=== PATIENT | female | born 2000 | race Caucasian/White ===

== ENCOUNTER → 2020-04-30 | Outpatient (CLI) | payer SELFPAY | LOC: M LABSMTC 09:34 | PROVIDERS: ATTEND Pediatrics | DX: Z20.828 Contact with and (suspected) exposure to other viral communicable diseases (principal) ==

== ENCOUNTER → 2020-05-29 | Outpatient (CLI) | payer OTHER, SELFPAY | LOC: M LABSMTC 12:25 | PROVIDERS: ATTEND Pediatrics | DX: Z20.822 Contact with and (suspected) exposure to COVID-19 (principal) ==

== ENCOUNTER 2020-06-30 15:12 | Emergency (ER) | payer OTHER ==
[~2020-06-30] VITALS: Ht 160 cm; Wt 53.6 kg
[2020-06-30 17:00] VITALS: BP 129/69
== END 2020-06-30 17:17 | disposition home or self-care (01) ==
LOC: M ED 15:12
DX: Z32.01 Encounter for pregnancy test, result positive (principal)

== ENCOUNTER → 2020-07-28 | Outpatient (REF) | payer OTHER, MEDICAID ==
[2020-07-28 18:52] LABS: HEMATOCRIT 42.6 % (36.0-47.0); HEMOGLOBIN 14.3 g/dl (12.0-15.5); MEAN CORPUSCULAR HEMOGLOBIN 30.6 pg (27.0-33.0); MEAN CORPUSCULAR HGB CONC 33.6 g/dl (32.0-36.5); PLATELET COUNT, AUTOMATED 291 10^3/uL (150-450); RED BLOOD COUNT 4.68 10^6/uL (4.00-5.40); WHITE BLOOD COUNT 10.6 10^3/uL (4.0-10.0)
[2020-07-28 20:01] LABS: HEPATITIS C VIRUS ABY INDEX < 0.0 INDEX (<0.8); HIV 1&2 SCREEN CENTAUR NEGATIVE (NEGATIVE)
[2020-07-28 20:12] LABS: CHLAMYDIA DNA AMPLIFICATION NEGATIVE (NEGATIVE); GC DNA AMPLIFICATION NEGATIVE (NEGATIVE)
== END ==
LOC: M PLALAB 14:53
PROVIDERS: ATTEND Advanced Practice Midwife
DX: Z36.89 Encounter for other specified antenatal screening (principal); Z34.01 Encounter for supervision of normal first pregnancy, first trimester

== ENCOUNTER → 2020-08-26 | Outpatient (REF) | payer OTHER, MEDICAID | LOC: M SFHCWAGY 12:57 | PROVIDERS: ATTEND Advanced Practice Midwife | DX: Z36.89 Encounter for other specified antenatal screening (principal); Z34.01 Encounter for supervision of normal first pregnancy, first trimester ==

== ENCOUNTER → 2020-12-16 | Outpatient (CLI) | payer OTHER, MEDICAID ==
[2020-12-16 13:27] LABS: HEMATOCRIT 31.9 % (36.0-47.0); HEMOGLOBIN 10.9 g/dl (12.0-15.5); MEAN CORPUSCULAR HEMOGLOBIN 31.7 pg (27.0-33.0); MEAN CORPUSCULAR HGB CONC 34.2 g/dl (32.0-36.5); MEAN CORPUSCULAR VOLUME 92.7 fl (80.0-96.0); PLATELET COUNT, AUTOMATED 234 10^3/uL (150-450); RED BLOOD COUNT 3.44 10^6/uL (4.00-5.40); WHITE BLOOD COUNT 11.8 10^3/uL (4.0-10.0)
[2020-12-16 14:00] LABS: THYROID STIMULATING HORMONE 4.09 uIU/ML (0.463-3.98)
[2020-12-16 15:01] LABS: GC DNA AMPLIFICATION NEGATIVE (NEGATIVE)
== END ==
LOC: M PLALAB 09:58
PROVIDERS: ATTEND Advanced Practice Midwife
DX: Z36.89 Encounter for other specified antenatal screening (principal); Z3A.24 24 weeks gestation of pregnancy

== ENCOUNTER → 2021-02-12 | Outpatient (CLI) | payer OTHER, MEDICAID ==
[2021-02-12 15:57] LABS: FREE T4 0.99 NG/DL (0.78-1.33)
[2021-02-12 16:38] LABS: HIV 1&2 SCREEN CENTAUR NEGATIVE (NEGATIVE)
== END ==
LOC: M PLALAB 14:21
PROVIDERS: ATTEND Advanced Practice Midwife
DX: O99.283 Endocrine, nutritional and metabolic diseases complicating pregnancy, third trimester (principal)

== ENCOUNTER → 2021-02-12 | Outpatient (REF) | payer OTHER, MEDICAID | LOC: M SFHCWAGY 16:48 | PROVIDERS: ATTEND Advanced Practice Midwife | DX: O99.283 Endocrine, nutritional and metabolic diseases complicating pregnancy, third trimester (principal) ==

== ENCOUNTER 2021-02-28 14:45 | Inpatient (IN) | payer OTHER, MEDICAID ==
[~2021-02-28] VITALS: Ht 160 cm; Wt 68.8 kg
[2021-02-28] VITALS (14 sets, daily range): BP systolic 114–172; BP diastolic 71–93
[2021-02-28] MEDS ORDERED: PRENTAB9 PO (15:08)
[2021-02-28] MEDS ORDERED: LEVO50TA5 (15:08)
[2021-02-28] MEDS ORDERED: TUMS750C5 PO (15:08)
[2021-02-28] MEDS ORDERED: HOME MED LIST COMPLETE! XX SCH (15:10)
--- OUTSIDE RECORDS SUMMARY | 2021-02-28 16:22 | CCD ---
Continuity of Care Document (CCD) Created on: 12/17/2020 Haris Baez External Reference #: [id number] : 2000 Sex: Female Author Author Haris BERGERON M.D. Organization Unknown Address [address] [place] [address] Phone [phone] Care Team Providers Care Barrel Bander Name Role Phone [facility] Rheumatology AUTM [phone] Odalys Mcmillan PA-C AUTM [phone] [facility] AUTM Problems Active Problems Provider Date Seizure Martha Keyes NP Onset: 12/16/2015 Anxiety Martha Keyes NP Onset: 05/02/2015 Family disruption due to divorce Martha Keyes NP Onset: 12/16/2015 Child in foster care Martha Keyes NP Onset: 05/02/2015 Social History Type Date Description Comments Sex Unknown Tobacco Use Start: Unknown Never Smoked Cigarettes ETOH Use Denies alcohol use Tobacco Use Start: Unknown Patient has never smoked Recreational Drug Use Denies Drug Use Guns in Home No Smoke Alarms Yes Smoke Alarms Carbon Monoxide Detector: Yes Allergies, Adverse Reactions, Alerts Active Allergies Reaction Severity Comments Date Adhesives Hives, Itching Moderate 12/15/2015 NKFA 12/26/2017 NKEA 12/26/2017 Medications Active Medications SIG Qnty Indications Ordering Provide r Date Naproxen Sodium 550mg Tablets take 1 by mouth every 8 hour as needed for cramping 30tabs N92.0 Donny Carbone M.D. 11/20/2019 Immunizations CPT Code Status Date Vaccine Lot # [id number] Given 05/30/2018 Tuberculin PPD 5Tu/0.1mL C54 [id number] [id number] Given 04/03/2018 HPV9 (Gardasil 9) Vaccine R0 73692 51634 Given 03/03/2018 Influenza (>= 6 Months) P.F. Vaccine [id number] 79309 Given 03/03/2018 HPV9 (Gardasil 9) Vaccine R0 06140 69543 Given 12/19/2017 Meningococcal Conjugate Vacc ine (Menveo) [id number] 65642 Given 12/15/2015 Tuberculin PPD 5Tu/0.1mL 799 052 Vital Signs Date Vital Result Comment 04/07/2020 3:15pm BP Systolic 118 mmHg BP Diastolic 70 mmHg Heart Rate 98 /min Body Temperature 96.8 F Respiratory Rate 16 /min O2 % BldC Oximetry 100 % Weight 124.38 lb Weight 56.416 kg Weight Percentile 43rd Height 63 inches 5'3" Height Percentile 31 % BMI (Body Mass Index) 22.0 kg/m2 Body Mass Index Percentile 54 % BSA (Body Surface Area) 1.58 m2 11/22/2019 3:38pm BP Systolic 131 mmHg BP Diastolic 85 mmHg Heart Rate 107 /min Body Temperature 98.6 F O2 % BldC Oximetry 98 % Results Test Acquired Date Facility Test Result H/L Range Note Type & Screen -Incl Blood Type,Juan,AB SC 12/16/2020 [facility] Blood Type A POSITIVE Normal AB Screen ([place])Vis NEGATIVE Normal Complete Blood Count 12/16/2020 [facility] White Blood Count 11.8 10 High 4.0-10.0 Red Blood Count 3.44 10 Low 4.00-5.40 Hemoglobin 10.9 g/dL Low 12.0-15.5 Hematocrit 31.9 % Low 36.0-47.0 Mean Corpuscular Volume 92.7 fl Normal 80.0-96.0 Mean Corpuscular Hemoglobin 31.7 pg Normal 27.0-33.0 Mean Corpuscular HGB Conc 34.2 g/dL Normal 32.0-36.5 Red Cell Distribution Width 11.7 % Normal 11.5-14.5 Platelet Count, Automated 234 10 Normal 150-450 Nucleated Red Blood Cell % 0.0 % Normal 0-0 Laboratory test finding 12/16/2020 [facility] Glucose Challenge Test 1 Hour 117 mg/dL Normal Less Than 1 40 FT4&TSH Panel 12/16/2020 [facility] Thyroid Stimulating Hormone 4.090 uIU/ML High 0.463-3.98 Free T4 1.00 ng/dL Normal 0.78-1.33 GC & Chlamydia By Amp 12/16/2020 [facility] Chlamydia Dna Amplification NEGATIVE Normal Negative 1 GC Dna Amplification NEGATIVE Normal Negative 2 Urine Culture 12/16/2020 [facility] Urine Culture FULL REPORT IN L <SEE NOTE> Normal 3 1 A negative test result does not exclude the possibility of infection because test results may be affected by improper specimen collection, technical error, specimen mix-up, concurrent antibiotic therapy, or the number of organisms in the specimen which may be below the sensitivity of the test. 2 A negative test result does not exclude the possibility of infection because test results may be affected by improper specimen collection, technical error, specimen mix-up, concurrent antibiotic therapy, or the number of organisms in the specimen which may be below the sensitivity of the test. 3 FULL REPORT IN LAB NOTES (eC W and Medsk[facility]). ORGANISM 1: LACTOBACILLUS SPECIES COLONY COUNT 50,000 Most Lactobacillus species recovered from clinical specimens are rarely pathogenic. Penicillin or ampicillin with or without gentamicin is recommended for treatment. Clindamycin and erythromycin are alternative treatments. Vancomycin resistance has been reported. ORGANISM 1: LACTOBACILLUS SPECIES Procedures Description No Information Available Medical Devices Description No Information Available Encounters Description No Information Available Assessments Description No Information Available Plan of Treatment 04/07/2020 - Odalys Mcmillan PA-C* F95.8 Tic disorder* Comments:* No focal deficits or tics observed today. Recommended neurology referral for further evaluation. * Referral:* [facility] Functional Status Description No Information Available Mental Status Description No Information Available Referrals Description No Information Available
--- OUTSIDE RECORDS SUMMARY | 2021-02-28 16:22 | CCD ---
Author Author [facility] Organization [facility] Address Unknown Phone Unavailable Care Team Providers Care Surgical Specialist Name Role Phone Missy Virgen Unavailable PROBLEMS Type Condition ICD9-CM Code [id number] Code Onset Dates Condition S tatus W/U Status Risk SNOMED Code Notes Problem Supervision of other normal Z34.80 Ac tive confirm [id number] ALLERGIES No Known Allergies ENCOUNTERS from 2000 to 2020-12-17 Encounter Location Date Provider Diagnosis [facility] [address] [place] [address] [place] [address] Nov, Missy Virgen Fatigue R53.83 ; Other specified related conditions, third trimester O26.893 and 28 weeks gestation of Z3A.28 IMMUNIZATIONS No Information SOCIAL HISTORY Tobacco Use: Social History Observation Description Date Details (start date - stop date) Never Smoker Sex Assigned At : Social History Observation Description Sex Assigned At Unknown Tobacco Use: Question Answer Notes Are you a: never smoker REASON FOR REFERRAL No Information VITAL SIGNS Weight 137.6 lbs Nov, Weight-kg 62.41 kg Nov, Height 63 in Nov, BMI 24.375 kg/m2 Nov, Blood pressure systolic 120 mm Hg Nov, Blood pressure diastolic 78 mm Hg Nov, MEDICATIONS Medication SIG (Take, Route, Frequency, Duration) Notes Start Da te End Date Status 27-1 MG 1 tablet Orally Once a day Active Macrobid 100 MG 1 capsule Orally twice a day for 7 day(s) Sep, Not-Taking Ondansetron 4 MG 1 tablet on the tongue and a llow to dissolve Orally Once a day for 30 day(s) Jun, Active Macrobid 100 MG capsule Orally Twice a day for 7 days 2020 Not-Taking PROCEDURES No Information RESULTS Component Value Reference Range URINE CULTURE Reviewed date:12/17/2020 17:24:19 Interpretation: Performing Lab:[facility], [facility] [address] [facility] [id number] , ,[place] [address] REASON FOR VISIT 4 WK PN Goals Section No Information Health Concerns No Information MEDICAL EQUIPMENT No Information MENTAL STATUS No Information FUNCTIONAL STATUS No Information ASSESSMENTS Encounter Date Diagnosis Assessment Notes Treatment Notes Treatm ent Clinical Notes Nov, Fatigue (ICD-10 - R53.83) Nov, Other specified re lated conditions, third trimester (ICD- 10 - O26.893) Nov, 28 weeks gestation of (ICD-10 - Z3A.28 ) PLAN OF TREATMENT Treatment Notes Test Name Order Date FREE T4 & TSH PANEL 2020-12-16 Next Appt Details 2 Weeks Reason:- Routine follow up Provider Name:Charmaine Krishna, 2 11:30:00 AM, [address] [place] [address] , [place], [address], Provider Name:Charmaine Krishna, 2020-12-31 5 09:00:00 AM, [address] [place] [address] , [place], [address], Provider Name:Santi Smalls, 2021-01-28 01:00:00 PM, [address] [place] [address] , [place], [address], Follow Up:2 Weeks- Routine follow up Insurance Providers Payer Name Payer Address Payer Phone Insured Name Patient Relati onship to Insured Coverage Start Date Coverage End Date MEDICAID [employer] [address] [facility] [id number] [address] [facility] [address] [place] [id number] Vivek Baez
--- OUTSIDE RECORDS SUMMARY | 2021-02-28 16:22 | CCD ---
Author Author [facility] Organization [facility] Address Unknown Phone Unavailable Care Team Providers Care Labeling Strategist Name Role Phone Santi Smalls Unavailable PROBLEMS Type Condition ICD9-CM Code [id number] Code Onset Dates Condition S tatus W/U Status Risk SNOMED Code Notes Problem Supervision of other normal Z34.80 Ac tive confirm [id number] Problem Anemia complicating , third trimester O99 .013 Active confirmed [id number] ALLERGIES No Known Allergies ENCOUNTERS from 2000 to 2021-02-03 Encounter Location Date Provider Diagnosis [facility] [address] [place] [address] [place] [address] Dec, Santi Smalls Encounter for superv ision of normal first in third trimester Z34.03 and 34 weeks gestation of Z3A.34 IMMUNIZATIONS Vaccine Route Administration Date Status TDAP 0.5mL Boostrix IM Intramuscular Jan 14, 2021 Administere d SOCIAL HISTORY Tobacco Use: Social History Observation Description Date Details (start date - stop date) Never Smoker Sex Assigned At : Social History Observation Description Sex Assigned At Unknown Alcohol Screening: Question Answer Notes Did you have a drink containing alcohol in the past year? No Points 0 Interpretation Negative Tobacco Use: Question Answer Notes Are you a: never smoker REASON FOR REFERRAL No Information VITAL SIGNS Weight 147.8 lbs Dec, Height 63 in Dec, BMI 26.182 kg/m2 Dec, Blood pressure systolic 122 mm Hg Dec, Blood pressure diastolic 58 mm Hg Dec, MEDICATIONS Medication SIG (Take, Route, Frequency, Duration) Notes Start Da te End Date Status Ferrous Sulfate 325 (65 Fe) MG 1 tablet Orally Once a day for 30 day(s) Nov, Active Levothyroxine Sodium 50 MCG 1 tablet in the morning on an empty stomach Orally Once a day for 30 day(s) Nov, Active 27-1 MG 1 tablet Orally Once a day Active Ondansetron 4 MG 1 tablet on the tongue and a llow to dissolve Orally Once a day for 30 day(s) Jun, Active PROCEDURES No Information RESULTS No Results REASON FOR VISIT 2 WK Goals Section No Information Health Concerns No Information MEDICAL EQUIPMENT No Information MENTAL STATUS No Information FUNCTIONAL STATUS No Information ASSESSMENTS Encounter Date Diagnosis Assessment Notes Treatment Notes Treatm ent Clinical Notes Dec, Encounter for supervision of normal first in third trimester (ICD-10 - Z34.03) Dec, 34 weeks gestation of (ICD-10 - Z3A.34 ) PLAN OF TREATMENT Next Appt Details Provider Name:Tammy Contreras, 2021-02-12 01:40:00 PM, [address] [place], [place] [address], [place], [address], Provider Name:Tammy Contreras, 2021-02-19 11:40:00 AM, [address] [place] [address], [place], [address], Provider Name:Missy Virgen, 2021-02-26 10:00:00 AM, [address] [place] [address], [place], [address], Provider Name:Tammy Contreras, 2021-03-05 01:40:00 PM, [address] [place] [address], [place], [address], Insurance Providers Payer Name Payer Address Payer Phone Insured Name Patient Relati onship to Insured Coverage Start Date Coverage End Date MEDICAID [employer] [address] [facility] [id number] [address] [facility] [address] [place] [id number] Vivek Baez
--- OUTSIDE RECORDS SUMMARY | 2021-02-28 16:22 | CCD | Continuity of Care Document ---
Author Author Haris BERGERON M.D. Organization Unknown Address [address] [place] [address] Phone [phone] Care Team Providers Care Editing Clerk Name Role Phone [facility] Rheumatology AUTM [phone] Odalys Mcmillan PA-C AUTM [phone] [facility] AUTM Problems Active Problems [...] CPT Code Status Date Vaccine Lot # [id number] Given 05/30/2018 Tuberculin PPD 5Tu/0.1mL C54 [id number] 93623 Given 04/03/2018 HPV9 (Gardasil 9) Vaccine R0 92200 33212 Given 03/03/2018 Influenza (>= 6 Months) P.F. Vaccine [id number] 95799 Given 03/03/2018 HPV9 (Gardasil 9) Vaccine R0 21499 05392 Given 12/19/2017 Meningococcal Conjugate Vacc ine (Menveo) [id number] 77621 Given 12/15/2015 Tuberculin PPD 5Tu/0.1mL 799 052 [...] & Screen -Incl Blood Type,Juan,AB SC 12/16/2020 [facility] Blood Type A POSITIVE Normal AB Screen ([place])Vis NEGATIVE Normal Complete Blood Count 12/16/2020 [facility] White Blood Count 11.8 10 High [...] % Normal 0-0 Laboratory test finding 12/16/2020 [facility] Glucose Challenge Test 1 Hour 117 mg/dL Normal Less Than 1 40 FT4&TSH Panel 12/16/2020 [facility] Thyroid Stimulating Hormone 4.090 uIU/ML High 0.463-3.98 Free T4 1.00 ng/dL Normal 0.78-1.33 GC & Chlamydia By Amp 12/16/2020 [facility] Chlamydia Dna Amplification NEGATIVE Normal Negative 1 GC Dna Amplification NEGATIVE Normal Negative 2 Urine Culture 12/16/2020 [facility] Urine Culture FULL REPORT IN L [...]
--- OUTSIDE RECORDS SUMMARY | 2021-02-28 16:22 | CCD ---
Author Author [facility] Organization [facility] Address Unknown Phone Unavailable Care Team Providers Care Tax Advisor Name Role Phone Missy Virgen Unavailable PROBLEMS Type Condition ICD9-CM Code [id number] Code Onset Dates Condition S tatus W/U Status Risk SNOMED Code Notes Problem Supervision of other normal Z34.80 Ac tive confirm [id number] Problem Anemia complicating , third trimester O99 .013 Active confirmed 94087735 ALLERGIES No Known Allergies ENCOUNTERS from 2000 to 2020-12-18 Encounter Location Date Provider Diagnosis [facility] [address] [place] [address] [place] [address] Nov, Missy Virgen Hypothyroid in pr egnancy, antepartum O99.280 IMMUNIZATIONS No Information SOCIAL HISTORY Tobacco Use: Social History Observation Description Date Details (start date - stop date) Never Smoker Sex Assigned At : Social History Observation Description Sex Assigned At Unknown Tobacco Use: Question Answer Notes Are you a: never smoker REASON FOR REFERRAL No Information VITAL SIGNS No information MEDICATIONS Medication SIG (Take, Route, Frequency, Duration) Notes Start Da te End Date Status Ferrous Sulfate 325 (65 Fe) MG 1 tablet Orally Once a day for 30 day(s) Nov, Active Macrobid 100 MG capsule Orally Twice a day for 7 days 02 A 2020 Not-Taking Macrobid 100 MG 1 capsule Orally twice a day for 7 day(s) Sep, Not-Taking Ondansetron 4 MG 1 tablet on the tongue and a llow to dissolve Orally Once a day for 30 day(s) Jun, Active Levothyroxine Sodium 50 MCG 1 tablet in the morning on an empty stomach Orally Once a day for 30 day(s) Nov, Active 27-1 MG 1 tablet Orally Once a day Active PROCEDURES No Information RESULTS No Results REASON FOR VISIT No Information Goals Section No Information Health Concerns No Information MEDICAL EQUIPMENT No Information MENTAL STATUS No Information FUNCTIONAL STATUS No Information ASSESSMENTS Encounter Date Diagnosis Assessment Notes Treatment Notes Treatm ent Clinical Notes Nov, Hypothyroid in , antepartum (ICD-10 - O 99.280) PLAN OF TREATMENT Medication Medication Name Sig Start Date Stop Date Ferrous Sulfate 325 (65 Fe) MG 1 tablet Orally Once a day fo r 30 day(s) Nov, Levothyroxine Sodium 50 MCG 1 tablet in the morning on an empty stomach Orally Once a day for 30 day(s) Nov, Next Appt Details Provider Name:Charmaine Krishna, 2 11:30:00 AM, [address] [place] [address], [place], [address], Provider Name:Charmaine Krishna, 2020-12-31 5 09:00:00 AM, [address] [place] [address], [place], [address], Provider Name:Santi Smalls, 2021-01-28 01:00:00 PM, [address] [place] [address], [place], [address], Insurance Providers Payer Name Payer Address Payer Phone Insured Name Patient Relati onship to Insured Coverage Start Date Coverage End Date MEDICAID [employer] [address] [facility] [address] [address] [facility] [address] [place] [id number] Vivek Baez
--- OUTSIDE RECORDS SUMMARY | 2021-02-28 16:22 | CCD ---
Author Author [facility] Organization [facility] Address Unknown Phone Unavailable Care Team Providers Care Nursing Project Coordinator Name Role Phone Charmaine Krishna Unavailable PROBLEMS Type Condition ICD9-CM Code [id number] Code Onset Dates Condition S tatus W/U Status Risk SNOMED Code Notes Problem Hypothyroid E03.9 Active confirmed 82757234 Problem Anemia complicating , third trimester O99 .013 Active confirmed 97469697 Problem Supervision of other normal Z34.80 Ac tive confirm 876381808 Problem Hypothyroid in , antepartum O99.280 Active confirmed ALLERGIES No Known Allergies ENCOUNTERS from 2000 to 2021-02-04 Encounter Location Date Provider Diagnosis [facility] Breast Care [address] [place] [address] [place] [address] Dec, Charmaine JorgeAlonsoeitan 32 weeks gestation o f Z3A.32 ; Other specified related conditions, third trimester O26.893 and Encounter for immunization Z23 IMMUNIZATIONS Vaccine Route Administration Date Status TDAP [...] FOR REFERRAL No Information VITAL SIGNS Weight 143 lbs Dec, Weight-kg 64.86 kg Dec, Height 63 in Dec, BMI 25.331 kg/m2 Dec, Blood pressure systolic 120 mm Hg Dec, Blood pressure diastolic 68 mm Hg Dec, MEDICATIONS Medication SIG (Take, [...] day for 30 day(s) Jun, Active PROCEDURES from 2000 to 2021-02-04 Procedure Date Ordered Result Body Site Imm: Boostrix 0.5mL IM TDAP 2021-01-14 N/A RESULTS No Results REASON FOR VISIT 2 WK Goals Section No Information Health Concerns No Information MEDICAL EQUIPMENT No Information MENTAL STATUS No Information FUNCTIONAL STATUS No Information ASSESSMENTS Encounter Date Diagnosis Assessment Notes Treatment Notes Treatm ent Clinical Notes Dec, 32 weeks gestation of (ICD-10 - Z3A.32 ) Dec, Other specified re lated conditions, third trimester (ICD- 10 - O26.893) Dec, Encounter for immunization (ICD-10 - Z23) PLAN OF TREATMENT Next Appt Details 2 Weeks Reason:routine Provider Name:Tammy Contreras, 2021-02-12 01:40:00 PM, [address] [place] [address] , [place], [address], Provider Name:Tammy Contreras, 2021-02-19 11:40:00 AM, [address] [place] [address] , [place], [address], Provider Name:Missy Virgen, 2021-02-26 10:00:00 AM, [address] [place] [address], [place], [address], Provider Name:Tammy Contreras, 2021-03-05 01:40:00 PM, [address] [place] [address] , [place], [address], Follow Up:2 Weeksroutine Insurance Providers Payer Name Payer Address Payer Phone Insured Name Patient Relati onship to Insured Coverage Start Date Coverage End Date [facility] HEALTH [employer]URANCE [address] [place] [address] Vivek Baez MEDICAID [employer] [address] [facility] [id number] [address]AE[address] self
--- OUTSIDE RECORDS SUMMARY | 2021-02-28 16:22 | CCD ---
Author Author [facility] Organization [facility] Address Unknown Phone Unavailable Care Team Providers Care Ict Teacher Name Role Phone Missy Virgen Unavailable PROBLEMS Type Condition ICD9-CM Code [id number] Code Onset Dates Condition S tatus W/U Status Risk SNOMED Code Notes Problem Supervision of other normal Z34.80 Ac tive confirm [id number] Problem Anemia complicating , third trimester O99 .013 Active confirmed 89837666 ALLERGIES No Known Allergies ENCOUNTERS from 2000 to 2020-12-18 Encounter Location Date Provider Diagnosis [facility] [address] [place] [address] [place] [address] Nov, Missy Virgen Anemia complicati ng , third trimester O99.013 IMMUNIZATIONS No Information SOCIAL HISTORY Tobacco Use: [...] Orally Twice a day for 7 days A 2020 Not-Taking Macrobid 100 MG 1 [...] Treatment Notes Treatm ent Clinical Notes Nov, Anemia complicating , third tri mester (ICD-10 - O99.013) PLAN OF TREATMENT Medication Medication Name Sig Start Date Stop Date Ferrous Sulfate 325 (65 Fe) MG 1 tablet Orally Once a day fo r 30 day(s) Nov, Levothyroxine Sodium 50 MCG 1 tablet in the morning on an empty stomach Orally Once a day for 30 day(s) Nov, Next Appt Details Provider Name:Charmaine Krishna, 2 11:30:00 AM, [address] [place] [address], [place], [address], Provider Name:Charmaine Krishna, 2020-12-31 5 09:00:00 AM, [address] [place] [address], [place], [address], Provider Name:Santi Smalls, 2021-01-28 01:00:00 PM, [address] [place] [address], [place], [address], Insurance Providers Payer Name Payer Address Payer Phone Insured Name Patient Relati onship to Insured Coverage Start Date Coverage End Date MEDICAID [employer] [address] [facility] [address] [address] [facility] [address] [facility] [id number] Vivek Baez
--- OUTSIDE RECORDS SUMMARY | 2021-02-28 16:22 | CCD | Continuity of Care Document ---
Author Author Haris BERGERON M.D. Organization Unknown Address [address] [place] [address] Phone [phone] Care Team Providers Care Travelift Operator Name Role Phone [facility] Rheumatology AUTM [phone] Odalys Mcmillan PA-C AUTM [phone] [facility] AUTM Problems Active [...] CPT Code Status Date Vaccine Lot # [id number] Given 05/30/2018 Tuberculin PPD 5Tu/0.1mL C54 [id number] 96818 Given 04/03/2018 HPV9 (Gardasil 9) Vaccine R0 42280 27047 Given 03/03/2018 Influenza (>= 6 Months) P.F. Vaccine [id number] 88537 Given 03/03/2018 HPV9 (Gardasil 9) Vaccine R0 88972 13948 Given 12/19/2017 Meningococcal Conjugate Vacc ine (Menveo) [id number] 22448 Given 12/15/2015 Tuberculin PPD 5Tu/0.1mL 799 052 [...] & Screen -Incl Blood Type,Juan,AB SC 12/16/2020 [facility] Blood Type A POSITIVE Normal AB Screen ([place])Vis NEGATIVE Normal Complete Blood Count 12/16/2020 [facility] White Blood Count 11.8 10 High 4.0-10.0 [...] % Normal 0-0 Laboratory test finding 12/16/2020 [facility] Glucose Challenge Test 1 Hour 117 mg/dL Normal Less Than 1 40 FT4&TSH Panel 12/16/2020 [facility] Thyroid Stimulating Hormone 4.090 uIU/ML High 0.463-3.98 Free T4 1.00 ng/dL Normal 0.78-1.33 GC & Chlamydia By Amp 12/16/2020 [facility] Chlamydia Dna Amplification NEGATIVE Normal Negative 1 GC Dna Amplification NEGATIVE Normal Negative 2 Urine Culture 12/16/2020 [facility] Urine Culture FULL REPORT IN L <SEE [...]
--- OUTSIDE RECORDS SUMMARY | 2021-02-28 16:22 | CCD ---
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 Name Role Phone Charmaine Krishna Unavailable PROBLEMS Type Condition ICD9-CM Code [id number] Code Onset Dates Condition S tatus W/U Status Risk SNOMED Code Notes Problem Hypothyroid E03.9 Active confirmed 14019121 Problem Anemia complicating , third trimester O99 .013 Active confirmed 71013718 Problem Supervision of other normal Z34.80 Ac tive confirm 340554093 Problem Hypothyroid in , antepartum O99.280 Active confirmed ALLERGIES No Known Allergies ENCOUNTERS from 2000 to 2021-02-04 Encounter Location Date Provider Diagnosis [facility] [address] [place] [address] [place] [address] Dec, Charmaine Krishna Other specified preg taylor related conditions, third trimester O26.893 ; Endocrine, nutritional and metabolic diseases complicating , third trimester O99.283 ; Hypothyroid E03.9 ; 30 weeks gestation of Z3A.30 and Encounter for supervision of normal first , third trimester Z34.03 IMMUNIZATIONS Vaccine Route Administration Date Status TDAP [...] FOR REFERRAL No Information VITAL SIGNS Weight 141 lbs 02 Sep, 2021 Height 63 in Dec, BMI 24.977 kg/m2 Dec, Blood pressure systolic 128 mm Hg Dec, Blood pressure diastolic 62 mm Hg Dec, MEDICATIONS Medication SIG (Take, [...] No Results REASON FOR VISIT 2 WK PN Goals Section No Information Health Concerns No Information MEDICAL EQUIPMENT No Information MENTAL STATUS No Information FUNCTIONAL STATUS No Information ASSESSMENTS Encounter Date Diagnosis Assessment Notes Treatment Notes Treatm ent Clinical Notes Dec, Other specified re lated conditions, third trimester (ICD- 10 - O26.893) Dec, Endocrine, nutritional and m etabolic diseases complicating , third trimester (ICD-10 - O99.283) Dec, Hypothyroid (ICD-10 - E03.9) Dec, 30 weeks gestation of (ICD-10 - Z3A.30 ) Dec, Encounter for supervision of normal first , third trimester (ICD-10 - Z34.03) PLAN OF TREATMENT Next Appt Details Provider Name:Tammy Contreras, 2021-02-12 01:40:00 PM, [address] [place] [address] , [place], [address], Provider Name:Tammy Contreras, 2021-02-19 11:40:00 AM, [address] [place] [id number], [place], [address], Provider Name:Missy Virgen, 2021-02-26 10:00:00 AM, [address] [place], [place] [id number], [place], [address], Provider Name:Tammy Contreras, 2021-03-05 01:40:00 PM, [address] [facility] [place], , [place], [address], Insurance Providers Payer Name Payer Address Payer Phone Insured Name Patient Relati onship to Insured Coverage Start Date Coverage End Date MEDICAID [employer] [address] [facility] [id number] TRACY BAEZ [facility] [address] [facility] [id number] Vivek Baez
--- OUTSIDE RECORDS SUMMARY | 2021-02-28 16:22 | CCD ---
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 Role Phone Brisa Taylor Unavailable PROBLEMS Type Condition ICD9-CM Code [id number] Code Onset Dates Condition S tatus W/U Status Risk SNOMED Code Notes Problem Hypothyroid E03.9 Active confirmed 30017455 Problem Anemia complicating , third trimester O99 .013 Active confirmed 74882936 Problem Supervision of other normal Z34.80 Ac tive confirm 655629060 Problem Hypothyroid in , antepartum O99.280 Active confirmed ALLERGIES No Known Allergies ENCOUNTERS from 2000 to 2021-02-05 Encounter Location Date Provider Diagnosis [facility] [address] [place] [address] [place] [address] Jan, Brisa Taylor IMMUNIZATIONS Vaccine Route Administration Date Status TDAP [...] Information RESULTS No Results REASON FOR VISIT concerns Goals Section No Information Health Concerns No Information MEDICAL EQUIPMENT No Information MENTAL STATUS No Information FUNCTIONAL STATUS No Information ASSESSMENTS No Information PLAN OF TREATMENT Next Appt Details Provider Name:Tammy Contreras, 2021-02-12 01:40:00 PM, [address] [place] [address], [place], [address], Provider Name:Tammy Contreras, 2021-02-19 11:40:00 AM, [address] [place], [place] [address], [place], [address], Provider Name:Missy Virgen, 2021-02-26 10:00:00 AM, [address] [place], [place] [address], [place], [place], [address] [place] [address], Provider Name:Tammy Contreras, 2021-03-05 01:40:00 PM, [address] [place] [address], [place], [address], Insurance Providers Payer Name Payer Address Payer Phone Insured Name Patient Relati onship to Insured Coverage Start Date Coverage End Date [facility] [employer] [id number] [facility] [id number] Vivek Baez MEDICAID [employer] [address] [facility] [id number] [phone] TRACY BAEZ self
--- OUTSIDE RECORDS SUMMARY | 2021-02-28 16:23 | CCD ---
Author Author [facility] Organization [facility] Address Unknown Phone Unavailable Care Team Providers Care Developmental Writing Instructor Name Role Phone Mcmillan, M Odalys PA-C Unavailable Unavailable Mcmillan, M Odalys PA-C Unavailable Unavailable Mcmillan, M Odalys PA-C Unavailable Unavailable Mcmillan, M Odalys PA-C Unavailable Unavailable Mcmillan, M Odalys PA-C Unavailable Unavailable Mcmillan, M Odalys PA-C Unavailable Unavailable Mcmillan, M Odalys PA-C Unavailable Unavailable Mcmillan, M Odalys PA-C Unavailable Unavailable Mcmillan, M Odalys PA-C Unavailable Unavailable Mcmillan, M Odalys PA-C Unavailable Unavailable Mcmillan, M Odalys PA-C Unavailable Unavailable Mcmillan, M Odalys PA-C Unavailable Unavailable Mcmillan, M Odalys PA-C Unavailable Unavailable Mcmillan, M Odalys PA-C Unavailable Unavailable Mcmillan, M Odalys PA-C Unavailable Unavailable Mcmillan, M Odalys PA-C Unavailable Unavailable Mcmillan, M Odalys PA-C Unavailable Unavailable Mcmillan, M Odalys PA-C Unavailable Unavailable Mcmillan, M Odalys PA-C Unavailable Unavailable Mcmillan, M Odalys PA-C Unavailable Unavailable Mcmillan, M Odalys PA-C Unavailable Unavailable Mcmillan, M Odalys PA-C Unavailable Unavailable Mcmillan, M Odalys PA-C Unavailable Unavailable Mcmillan, M Odalys PA-C Unavailable Unavailable Mcmillan, M Odalys PA-C Unavailable Unavailable Mcmillan, M Odalys PA-C Unavailable Unavailable Mcmillan, M Odalys PA-C Unavailable Unavailable Mcmillan, M Odalys PA-C Unavailable Unavailable Mcmillan, M Odalys PA-C Unavailable Unavailable Mcmillan, M Odalys PA-C Unavailable Unavailable Mcmillan, M Odalys PA-C Unavailable Unavailable Mcmillan, M Odalys PA-C Unavailable Unavailable Mcmillan, M Odalys PA-C Unavailable Unavailable Mcmillan, M Odalys PA-C Unavailable Unavailable Mcmillan, M Odalys PA-C Unavailable Unavailable Mcmillan, M Odalys PA-C Unavailable Unavailable Mcmillan, M Odalys PA-C Unavailable Unavailable Mcmillan, M Odalys PA-C Unavailable Unavailable Carmen-Green, S Rashida MD Unavailable Unavailable Carmen-Green, S Rashida MD Unavailable Unavailable Carmen-Green, S Rashida MD Unavailable Unavailable Carmen-Green, S Rashida MD Unavailable Unavailable Carmen-Green, S Rashida MD Unavailable Unavailable Carmen-Green, S Rashida MD Unavailable Unavailable Carmen-Green, S Rashida MD Unavailable Unavailable Carmen-Green, S Rashida MD Unavailable Unavailable Carmen-Green, S Rashida MD Unavailable Unavailable Carmen-Green, S Rashida MD Unavailable Unavailable Carmen-Green, S Rashida MD Unavailable Unavailable Carmen-Green, S Rashida MD Unavailable Unavailable Carmen-Green, S Rashida MD Unavailable Unavailable Carmen-Green, S Rashida MD Unavailable Unavailable Carmen-Green, S Rashida MD Unavailable Unavailable Carmen-Green, S Rashida MD Unavailable Unavailable Carmen-Green, S Rashida MD Unavailable Unavailable Carmen-Green, S Rashida MD Unavailable Unavailable Carmen-Green, S Rashida MD Unavailable Unavailable Carmen-Green, S Rashida MD Unavailable Unavailable Carmen-Green, S Rashida MD Unavailable Unavailable Carmen-Green, S Rashida MD Unavailable Unavailable Carmen-Green, S Rashida MD Unavailable Unavailable Carmen-Green, S Rashida MD Unavailable Unavailable Carmen-Green, S Rashida MD Unavailable Unavailable Carmen-Green, S Rashida MD Unavailable Unavailable Carmen-Green, S Rashida MD Unavailable Unavailable Carmen-Green, S Rashida MD Unavailable Unavailable Carmen-Green, S Rashida MD Unavailable Unavailable Re-disclosure Warning The records that you are about to access may contain information from federally-assisted alcohol or drug abuse programs. If such information is present, then the following federally mandated warning applies: This information has been disclosed to you from records protected by federal confidentiality rules (42 CFR part 2). The federal rules prohibit you from making any further disclosure of this information unless further disclosure is expressly permitted by the written consent of the person to whom it pertains or as otherwise permitted by 42 CFR part 2. A general authorization for the release of medical or other information is NOT sufficient for this purpose. The Federal rules restrict any use of the information to criminally investigate or prosecute any alcohol or drug abuse patient.The records that you are about to access may contain highly sensitive health information, the redisclosure of which is protected by Article 27-F of the [facility] Public Health law. If you continue you may have access to information: Regarding HIV / AIDS; Provided by facilities licensed or operated by the [facility] Office of Mental Health; or Provided by the [facility] Office for People With Developmental Disabilities. If such information is present, then the following [facility] mandated warning applies: This information has been disclosed to you from confidential records which are protected by state law. State law prohibits you from making any further disclosure of this information without the specific written consent of the person to whom it pertains, or as otherwise permitted by law. Any unauthorized further disclosure in violation of state law may result in a fine or skilled nursing sentence or both. A general authorization for the release of medical or other information is NOT sufficient authorization for further disc losure. Allergies and Adverse Reactions Type Description Substance Reaction Status Data Source(s ) Drug allergy BEE POLLEN BEE POLLEN [facility] Family History Family Member Name Family Member Gender Family Member Status Date o f Status Description Data Source(s) Unknown Male Problem MEDENT ([facility]) Encounters Encounter Providers Location Date Indications Data Source(s ) [place] [address] [facility] [address] 02/04/2021 12:00:00 AM EDT eCW1 ([facility]) ( ESTOB) [facility] [address] [place] [address] 01/28/2021 12:00:00 AM EDT eCW1 (Critical access hospital) ( ESTOB) [facility] [address] [place] [address] 01/14/2021 12:00:00 AM EDT eCW1 ([facility]) (WC EST[facility]) [facility] [address] [place] [address] 01/01/2021 12:00:00 AM EDT eCW1 ([facility]) [place] [address] [facility] [address] 12/18/2020 12:00:00 AM EDT eCW1 ([facility]) [place] [address] [facility] [address] 12/18/2020 12:00:00 AM EDT eCW1 ([facility]) (WC EST[facility]) [facility] [address] [place] [address] 12/16/2020 12:00:00 AM EDT eCW1 ([facility]) (WC ESTOB) [facility] [address] [place] [address] 11/18/2020 12:00:00 AM EDT eCW1 ([facility]) [place] [address] [facility] [address] 10/26/2020 12:00:00 AM EDT eCW1 ([facility]) (WC EST[facility]) [facility] [address] [place] [address] 10/21/2020 12:00:00 AM EDT eCW1 ([facility]) (WC ESTOB) [facility] [address] [place] [address] 09/23/2020 12:00:00 AM EDT eCW1 ([facility]) [place] [address] [facility] [address] 08/29/2020 12:00:00 AM EDT eCW1 ([facility]) (WC ESTOB) [facility] [address] [place] [address] 08/26/2020 12:00:00 AM EDT eCW1 ([facility]) [place] [address] [facility] [address] 08/01/2020 12:00:00 AM EDT eCW1 ([facility]) (MARIBEL B[facility]GOS[facility]) [facility] Visit [address] [place] [address] 2020 12:00:00 AM EDT eCW1 (Critical access hospital) Outpatient Attender: Odalys NORMAN-CConsultant: Rashida Mckinnon MD 04/07/2020 03:06:00 PM EST - 04/07/2020 03:06:00 PM EST [facility] Immunizations Vaccine Date Status Description Data Source(s) Tdap 01/14/2021 09:24:00 AM EDT completed e CW1 ([facility]) Tdap 01/14/2021 09:24:00 AM EDT completed e CW1 ([facility]) Tdap 01/14/2021 09:24:00 AM EDT completed e CW1 ([facility]) Tdap 01/14/2021 09:24:00 AM EDT completed e CW1 ([facility]) Medications Medication Brand Name Start Date Product Form Dose Route Admi nistrative Instructions Pharmacy Instructions Status Indications Reaction Description Data Source(s) Levothyroxine Sodium 0.05 MG Oral Tablet Levothyroxine Sodium 50 MCG Levothyroxine Sodium 50 MCG 12/18/2020 12:00:00 AM EDT active Levothyroxine Sodium 50 MCG eCW1 ([facility]) 325 mg (65 mg iron) 12/18/2020 12:00:00 AM EDT tablet 30 TAKE ONE TABLET BY MOUTH EVERY DAY TAKE ONE TABLET BY MOUTH EVERY DAY SOLD: 12/21/2020 [facility] Levothyroxine Sodium 0.05 MG Oral Tablet Levothyroxine Sodium 50 MCG Levothyroxine Sodium 50 MCG 12/18/2020 12:00:00 AM EDT active Levothyroxine Sodium 50 MCG eCW1 ([facility]) ferrous sulfate 325 MG Oral Tablet Ferrous Sulfate 325 (65 Fe) MG Ferrous Sulfate 325 (65 Fe) MG 12/18/2020 12:00:00 AM EDT 1.0 {tablet} active Ferrous Sulfate 325 (65 Fe) MG eCW1 ([facility]) Levothyroxine Sodium 0.05 MG Oral Tablet Levothyroxine Sodium 50 MCG Levothyroxine Sodium 50 MCG 12/18/2020 12:00:00 AM EDT active Levothyroxine Sodium 50 MCG eCW1 ([facility]) Levothyroxine Sodium 0.05 MG Oral Tablet Levothyroxine Sodium 50 MCG Levothyroxine Sodium 50 MCG 12/18/2020 12:00:00 AM EDT active Levothyroxine Sodium 50 MCG eCW1 ([facility]) Levothyroxine Sodium 0.05 MG Oral Tablet Levothyroxine Sodium 50 MCG Levothyroxine Sodium 50 MCG 12/18/2020 12:00:00 AM EDT active Levothyroxine Sodium 50 MCG eCW1 ([facility]) ferrous sulfate 325 MG Oral Tablet Ferrous Sulfate 325 (65 Fe) MG Ferrous Sulfate 325 (65 Fe) MG 12/18/2020 12:00:00 AM EDT 1.0 {tablet} active Ferrous Sulfate 325 (65 Fe) MG eCW1 ([facility]) ferrous sulfate 325 MG Oral Tablet Ferrous Sulfate 325 (65 Fe) MG Ferrous Sulfate 325 (65 Fe) MG 12/18/2020 12:00:00 AM EDT 1.0 {tablet} active Ferrous Sulfate 325 (65 Fe) MG eCW1 ([facility]) ferrous sulfate 325 MG Oral Tablet Ferrous Sulfate 325 (65 Fe) MG Ferrous Sulfate 325 (65 Fe) MG 12/18/2020 12:00:00 AM EDT 1.0 {tablet} active Ferrous Sulfate 325 (65 Fe) MG eCW1 ([facility]) ferrous sulfate 325 MG Oral Tablet Ferrous Sulfate 325 (65 Fe) MG Ferrous Sulfate 325 (65 Fe) MG 12/18/2020 12:00:00 AM EDT 1.0 {tablet} active Ferrous Sulfate 325 (65 Fe) MG eCW1 ([facility]) ferrous sulfate 325 MG Oral Tablet Ferrous Sulfate 325 (65 Fe) MG Ferrous Sulfate 325 (65 Fe) MG 12/18/2020 12:00:00 AM EDT 1.0 {tablet} active Ferrous Sulfate 325 (65 Fe) MG eCW1 ([facility]) 50 mcg 12/18/2020 12:00:00 AM EDT tablet 30 TAKE ONE TABLET BY MOUTH EVERY MORNING ON EMPTY STOMACH TAKE ONE TABLET BY MOUTH EVERY MORNING O N EMPTY STOMACH SOLD: 12/21/2020 [facility] Levothyroxine Sodium 0.05 MG Oral Tablet Levothyroxine Sodium 50 MCG Levothyroxine Sodium 50 MCG 12/18/2020 12:00:00 AM EDT active Levothyroxine Sodium 50 MCG eCW1 ([facility]) NITROFURANTOIN, MACROCRYSTALS 25 MG / Ni trofurantoin, Monohydrate 75 MG Oral Capsule [Macrobid] Macrobid 100 MG Macrobid 100 MG 10/26/2020 12:00:00 AM EDT 1.0 {capsule} suspended Macrobid 100 MG eCW1 ([facility]) NITROFURANTOIN, MACROCRYSTALS 25 MG / Ni trofurantoin, Monohydrate 75 MG Oral Capsule [Macrobid] Macrobid 100 MG Macrobid 100 MG 10/26/2020 12:00:00 AM EDT 1.0 {capsule} suspended Macrobid 100 MG eCW1 ([facility]) NITROFURANTOIN, MACROCRYSTALS 25 MG / Ni trofurantoin, Monohydrate 75 MG Oral Capsule [Macrobid] Macrobid 100 MG Macrobid 100 MG 10/26/2020 12:00:00 AM EDT 1.0 {capsule} suspended Macrobid 100 MG eCW1 ([facility]) NITROFURANTOIN, MACROCRYSTALS 25 MG / Ni trofurantoin, Monohydrate 75 MG Oral Capsule [Macrobid] Macrobid 100 MG Macrobid 100 MG 10/26/2020 12:00:00 AM EDT 1.0 {capsule} active Macrobid 100 MG eC W1 ([facility]) NITROFURANTOIN, MACROCRYSTALS 25 MG / Ni trofurantoin, Monohydrate 75 MG Oral Capsule [Macrobid] Macrobid 100 MG Macrobid 100 MG 10/26/2020 12:00:00 AM EDT 1.0 {capsule} suspended Macrobid 100 MG eCW1 ([facility]) NITROFURANTOIN, MACROCRYSTALS 25 MG / Ni trofurantoin, Monohydrate 75 MG Oral Capsule 100 mg NITROFURANTOIN MONOHYD/M-CRYST 10/26/2020 12:00:00 AM EDT ca psule 14 TAKE ONE CAPSULE BY MOUTH TWICE A DAY FOR 7 DAYS TAKE ONE CAPSULE BY MOUTH TWICE A DAY FOR 7 DAYS SOLD: 10/29/2020 [facility] NITROFURANTOIN, MACROCRYSTALS 25 MG / Ni trofurantoin, Monohydrate 75 MG Oral Capsule [Macrobid] Macrobid 100 MG Macrobid 100 MG 08/01/2020 12:00:00 AM EDT suspended Macrobid 100 MG eCW1 ( [facility]) 100 mg 08/01/2020 12:00:00 AM EDT capsule 14 TAKE ONE CAPSULE BY MOUTH TWICE A DAY FOR 7 DAYS TAKE ONE CAPSULE BY MOUTH TWICE A DAY FOR 7 DAYS SOLD: 08/02/2020 [facility] NITROFURANTOIN, MACROCRYSTALS 25 MG / Ni trofurantoin, Monohydrate 75 MG Oral Capsule [Macrobid] Macrobid 100 MG Macrobid 100 MG 08/01/2020 12:00:00 AM EDT suspended Macrobid 100 MG eCW1 ( [facility]) NITROFURANTOIN, MACROCRYSTALS 25 MG / Ni trofurantoin, Monohydrate 75 MG Oral Capsule [Macrobid] Macrobid 100 MG Macrobid 100 MG 08/01/2020 12:00:00 AM EDT suspended Macrobid 100 MG eCW1 ( [facility]) NITROFURANTOIN, MACROCRYSTALS 25 MG / Ni trofurantoin, Monohydrate 75 MG Oral Capsule [Macrobid] Macrobid 100 MG Macrobid 100 MG 08/01/2020 12:00:00 AM EDT suspended Macrobid 100 MG eCW1 ( [facility]) NITROFURANTOIN, MACROCRYSTALS 25 MG / Ni trofurantoin, Monohydrate 75 MG Oral Capsule [Macrobid] Macrobid 100 MG Macrobid 100 MG 08/01/2020 12:00:00 AM EDT suspended Macrobid 100 MG eCW1 ( [facility]) NITROFURANTOIN, MACROCRYSTALS 25 MG / Ni trofurantoin, Monohydrate 75 MG Oral Capsule [Macrobid] Macrobid 100 MG Macrobid 100 MG 08/01/2020 12:00:00 AM EDT active Macrobid 100 MG eCW1 ([facility]) NITROFURANTOIN, MACROCRYSTALS 25 MG / Ni trofurantoin, Monohydrate 75 MG Oral Capsule [Macrobid] Macrobid 100 MG Macrobid 100 MG 08/01/2020 12:00:00 AM EDT suspended Macrobid 100 MG eCW1 ( [facility]) NITROFURANTOIN, MACROCRYSTALS 25 MG / Ni trofurantoin, Monohydrate 75 MG Oral Capsule [Macrobid] Macrobid 100 MG Macrobid 100 MG 08/01/2020 12:00:00 AM EDT suspended Macrobid 100 MG eCW1 ( [facility]) NITROFURANTOIN, MACROCRYSTALS 25 MG / Ni trofurantoin, Monohydrate 75 MG Oral Capsule [Macrobid] Macrobid 100 MG Macrobid 100 MG 08/01/2020 12:00:00 AM EDT suspended Macrobid 100 MG eCW1 ( [facility]) NITROFURANTOIN, MACROCRYSTALS 25 MG / Ni trofurantoin, Monohydrate 75 MG Oral Capsule [Macrobid] Macrobid 100 MG Macrobid 100 MG 08/01/2020 12:00:00 AM EDT suspended Macrobid 100 MG eCW1 ( [facility]) Ondansetron 4 MG Disintegrating Oral Tablet Ondansetron 4 MG 2020 12:00:00 AM EDT 1.0 {tablet_on_the_tongue_and_allow_to_dissolve} active Ondansetron 4 MG eCW1 ([facility]) Ondansetron 4 MG Disintegrating Oral Tablet ONDANSETRON 2020 12:00:00 AM EDT tablet,disintegrating 30 PLACE ONE TABLET ON TONGUE AND ALLOW TO DISSOLVE ONCE A DAY PLACE ONE TABLET ON TONGUE AND ALLOW TO DISSOLVE ONCE A DAY SOLD: 07/31/2020 [facility] Ondansetron 4 MG Disintegrating Oral Tablet Ondansetron 4 MG 2020 12:00:00 AM EDT 1.0 {tablet_on_the_tongue_and_allow_to_dissolve} active Ondansetron 4 MG eCW1 ([facility]) Ondansetron 4 MG Disintegrating Oral Tablet Ondansetron 4 MG 2020 12:00:00 AM EDT 1.0 {tablet_on_the_tongue_and_allow_to_dissolve} active Ondansetron 4 MG eCW1 ([facility]) Ondansetron 4 MG Disintegrating Oral Tablet Ondansetron 4 MG 2020 12:00:00 AM EDT 1.0 {tablet_on_the_tongue_and_allow_to_dissolve} active Ondansetron 4 MG eCW1 ([facility]) Ondansetron 4 MG Disintegrating Oral Tablet Ondansetron 4 MG 2020 12:00:00 AM EDT 1.0 {tablet_on_the_tongue_and_allow_to_dissolve} active Ondansetron 4 MG eCW1 ([facility]) Ondansetron 4 MG Disintegrating Oral Tablet Ondansetron 4 MG 2020 12:00:00 AM EDT 1.0 {tablet_on_the_tongue_and_allow_to_dissolve} active Ondansetron 4 MG eCW1 ([facility]) Ondansetron 4 MG Disintegrating Oral Tablet Ondansetron 4 MG 2020 12:00:00 AM EDT 1.0 {tablet_on_the_tongue_and_allow_to_dissolve} active Ondansetron 4 MG eCW1 ([facility]) Ondansetron 4 MG Disintegrating Oral Tablet Ondansetron 4 MG 2020 12:00:00 AM EDT 1.0 {tablet_on_the_tongue_and_allow_to_dissolve} active Ondansetron 4 MG eCW1 ([facility]) Ondansetron 4 MG Disintegrating Oral Tablet Ondansetron 4 MG 2020 12:00:00 AM EDT 1.0 {tablet_on_the_tongue_and_allow_to_dissolve} active Ondansetron 4 MG eCW1 ([facility]) Ondansetron 4 MG Disintegrating Oral Tablet Ondansetron 4 MG 2020 12:00:00 AM EDT 1.0 {tablet_on_the_tongue_and_allow_to_dissolve} active Ondansetron 4 MG eCW1 ([facility]) Ondansetron 4 MG Disintegrating Oral Tablet Ondansetron 4 MG 2020 12:00:00 AM EDT 1.0 {tablet_on_the_tongue_and_allow_to_dissolve} active Ondansetron 4 MG eCW1 ([facility]) Ondansetron 4 MG Disintegrating Oral Tablet Ondansetron 4 MG 2020 12:00:00 AM EDT 1.0 {tablet_on_the_tongue_and_allow_to_dissolve} active Ondansetron 4 MG eCW1 ([facility]) Ondansetron 4 MG Disintegrating Oral Tablet Ondansetron 4 MG 2020 12:00:00 AM EDT 1.0 {tablet_on_the_tongue_and_allow_to_dissolve} active Ondansetron 4 MG eCW1 ([facility]) Ondansetron 4 MG Disintegrating Oral Tablet Ondansetron 4 MG 2020 12:00:00 AM EDT 1.0 {tablet_on_the_tongue_and_allow_to_dissolve} active Ondansetron 4 MG eCW1 ([facility]) Ondansetron 4 MG Disintegrating Oral Tablet Ondansetron 4 MG 2020 12:00:00 AM EDT 1.0 {tablet_on_the_tongue_and_allow_to_dissolve} active Ondansetron 4 MG eCW1 ([facility]) medroxyprogesterone acetate 150 MG/ML Injectable Suspe nsion Medroxyprogesterone Acetate 11/20/2019 12:00:00 AM EDT completed MEDENT ([facility]) Insurance Providers Payer name Policy type / Coverage type Policy ID Covered libertarian ID Covered libertarian's relationship to hernández Policy Hernández Plan Information Janell Cifuentesus P [id number] P [id number] Medicaid Dental S [id number] EMEDNY [id number] SP [id number] [facility] [id number] FA2 [id number] SELF PAY ONLY [id number] SP [id number] SELF PAY ONLY [id number] [id number] MEDICAID [facility] [id number] [place] [id number] 19 [id number] MEDICAID -O/P EMERGENCY ROOM [id number] [facility] [employer] [facility] [place] [id number] 18 [id number] MEDICAID -PHYSICIAN [id number] [facility] [place] [id number] 19 [id number] MEDICAID -O/P [id number] Medicaid [facility] Medicaid [id number] Self [id number] [facility] [employer] Commercial [id number] Family Dependent [id number] Medicaid [facility] Medicaid [id number] Self [id number] [facility] [id number] Family Dependent [id number] MEDICAID -CLINIC [id number] [facility] [place] [id number] 18 [id number] N REGIONAL CLAIMS [facility]CLINIC [id number] 19 [id number] N REGIONAL [place] [id number] 18 [id number] [facility] [place] [id number] 18 [id number] [facility] Commercial [id number] Self [id number] [facility] Commercial [id number] Self D [employer] [facility] P [id number] P [id number] N REGIONAL CLAIMS RADAMES -O/P [id number] 19 [id number] [employer] [facility] Commercial [id number] Family Dependen t HEALTHNET/ AD P [id number] S [id number] [facility] MEDICAID [id number] SP [id number] K [id number] [facility] [id number] Problems, Conditions, and Diagnoses Code Display Name Description Problem Type Effective Dates Data Source(s) F958 Other tic disorders Other tic disorders Diagnosis 1 06/08/2019 03:06:00 PM EST [facility] O99.280 Hypothyroid in , antepartum Hyp othyroid in , antepartum Problem 02/04/2021 12:00:00 AM EDT eCW1 ([facility]) E03.9 Hypothyroid Hypothyroid Problem 02/04/2021 12:00:00 AM EDT eCW1 ([facility]) O99.013 Anemia in mother complicating , childbirth AND/OR puerperium Anemia complicating , third trimester Problem 021 12:00:00 AM EDT eCW1 ([facility]) Z34.80 care Supervision of other normal P roblem 07/25/2020 12:00:00 AM EDT eCW1 ([facility]) Surgeries/Procedures Procedure Description Date Indications Data Source(s) TDAP VACCINE 7/> YR IM 01/14/2021 12:00:00 AM EDT eCW1 ([facility]) Results ID Date Data Source [id number] 12/16/2020 11:10:00 AM EDT [facility] Name Value Range Interpretation Code Description Data Jing rce(s) Supporting Document(s) AB Screen ([place]irect [place])Vis Laboratory test result Normal (applies to non- numeric results) [facility] ([facility]) Blood Type Laboratory test result Normal (applies to non-n umeric results) [facility] ([facility]) ID Date Data Source [id number] 12/16/2020 11:04:00 AM EDT [facility] Name Value Range Interpretation Code Description Data Jing rce(s) Supporting Document(s) Urine Culture Laboratory test result Normal (applies t o non-numeric results) [facility] ([facility]) FULL REPORT IN LAB NOTES (eCW and [facility] ). ORGANISM 1: LACTOBACILLUS SPECIES COLONY COUNT 50,000 Most Lactobacillus species recovered from clinical specimens are rarely pathogenic. Penicillin or ampicillin with or without gentamicin is recommended for treatment. Clindamycin and erythromycin are alternative treatments. Vancomycin resistance has been reported. ORGANISM 1: LACTOBACILLUS SPECIES ID Date Data Source [id number] 12/16/2020 11:04:00 AM EDT [facility] ([facility]) Name Value Range Interpretation Code Description Data Jing rce(s) Supporting Document(s) Chlamydia Dna Amplification Laboratory test result Normal (applies to non- numeric results) [facility] ([facility]) A negative test result does not exclude the possibility of infection because test results may be affected by improper specimen collection, technical error, specimen mix-up, concurrent antibiotic therapy, or the number of organisms in the specimen which may be below the sensitivity of the test. GC Dna Amplification Laboratory test result Norm al (applies to non-numeric results) [facility] ([facility]) A negative test result does not exclude the possibility of infection because test results may be affected by improper specimen collection, technical error, specimen mix-up, concurrent antibiotic therapy, or the number of organisms in the specimen which may be below the sensitivity of the test. ID Date Data Source [id number] 12/16/2020 11:04:00 AM EDT [facility] ([facility]) Name Value Range Interpretation Code Description Data Jing rce(s) Supporting Document(s) Thyroid Stimulating Hormone 4.090 uIU/ML 0.463-3.98 Above high normal [facility]) Free T4 1.00 ng/dL 0.78-1.33 Normal (applies to non-numeric resul ts) [facility] ([facility]) ID Date Data Source [id number] 12/16/2020 11:04:00 AM EDT [facility] ([facility]) Name Value Range Interpretation Code Description Data Jing rce(s) Supporting Document(s) Glucose [Mass/volume] in Serum or Plasma --1 hour post XXX c hallenge 117 mg/dL Normal (applies to non-numeric results) [facility] [facility] ID Date Data Source [id number] 12/16/2020 11:04:00 AM EDT [facility] Name Value Range Interpretation Code Description Data Jing rce(s) Supporting Document(s) White Blood Count 11.8 10 4.0-10.0 Above high normal [facility] ([facility]) Red Blood Count 3.44 10 4.00-5.40 Below low normal [facility] ([facility]) Hematocrit 31.9 % 36.0-47.0 Below low normal [facility] ( [facility]) Hemoglobin 10.9 g/dL 12.0-15.5 Below low normal [facility] ( [facility]) Mean Corpuscular Volume 92.7 fl 80.0-96.0 Normal ( applies to non-numeric results) [facility] ([facility]) Mean Corpuscular Hemoglobin 31.7 pg 27.0-33.0 Norm al (applies to non-numeric results) [facility] ([facility]) Mean Corpuscular HGB Conc 34.2 g/dL 32.0-36.5 Normal (applies to non-numeric results) [facility] ([facility]) Red Cell Distribution Width 11.7 % 11.5-14.5 Norm al (applies to non-numeric results) [facility] ([facility]) Platelet Count, Automated 234 10 150-450 Normal (applies to non-numeric results) [facility] ([facility]) Nucleated Red Blood Cell % 0.0 % 0-0 Normal (applies to n on-numeric results) [facility] ([facility]) ID Date Data Source URINE CULTURE 12/16/2020 12:00:00 AM EDT eCW1 ([facility]) Name Value Range Interpretation Code Description Data Jing rce(s) Supporting Document(s) URINE CULTURE eCW1 ([facility]) ID Date Data Source [id number] 10/07/2020 03:08:00 PM EDT [facility] Name Value Range Interpretation Code Description Data Jing rce(s) Supporting Document(s) SARS-CoV-2 (COVID-19) RNA [Presence] in Respiratory specimen by BRENDA with probe detection Not Detected [facility] This lab was ordered by [facility] and reported by [employer] ID Date Data Source [id number] 09/23/2020 09:29:00 AM EDT [facility] Name Value Range Interpretation Code Description Data Jing rce(s) Supporting Document(s) SARS-CoV-2 (COVID-19) RNA [Presence] in Respiratory specimen by BRENDA with probe detection Not Detected [facility] This lab was ordered by [facility] and reported by [employer] ID Date Data Source [id number] 09/19/2020 12:00:00 AM EDT [facility] Name Value Range Interpretation Code Description Data Jing rce(s) Supporting Document(s) SARS coronavirus 2 Ag Negative [facility] This lab was ordered by [facility] and reported by [facility]. ID Date Data Source [id number] 09/16/2020 02:53:00 PM EDT [facility] Name Value Range Interpretation Code Description Data Jing rce(s) Supporting Document(s) SARS-CoV-2 (COVID-19) RNA [Presence] in Respiratory specimen by BRENDA with probe detection Not Detected [facility] This lab was ordered by [facility] and reported by [employer]. ID Date Data Source [id number] 09/09/2020 01:06:00 PM EDT [facility] Name Value Range Interpretation Code Description Data Jing rce(s) Supporting Document(s) SARS-CoV-2 (COVID-19) RNA [Presence] in Respiratory specimen by BRENDA with probe detection Not Detected [facility] This lab was ordered by [facility] and reported by [employer] ID Date Data Source [id number] 09/02/2020 01:33:00 PM EDT [facility] Name Value Range Interpretation Code Description Data Jing rce(s) Supporting Document(s) SARS-CoV-2 (COVID-19) RNA [Presence] in Respiratory specimen by BRENDA with probe detection Not Detected [facility] This lab was ordered by [facility] and reported by [employer] ID Date Data Source [id number] 09/02/2020 12:00:00 AM EDT [facility] Name Value Range Interpretation Code Description Data Jing rce(s) Supporting Document(s) SARS coronavirus 2 Ag Negative [facility] This lab was ordered by [facility] and reported by [facility]. ID Date Data Source [id number] 08/29/2020 12:00:00 AM EDT [facility] Name Value Range Interpretation Code Description Data Jing rce(s) Supporting Document(s) SARS coronavirus 2 Ag Negative [facility] This lab was ordered by [facility] and reported by [facility]. ID Date Data Source [id number] 08/26/2020 09:57:00 AM EDT [facility] Name Value Range Interpretation Code Description Data Jing rce(s) Supporting Document(s) SARS-CoV-2 (COVID-19) RNA [Presence] in Respiratory specimen by BRENDA with probe detection Not Detected [facility] This lab was ordered by [facility] and reported by [employer] ID Date Data Source [id number] 08/19/2020 02:39:00 PM EDT [facility] Name Value Range Interpretation Code Description Data Jing rce(s) Supporting Document(s) SARS-CoV-2 (COVID-19) RNA [Presence] in Respiratory specimen by BRENDA with probe detection Not Detected [facility] This lab was ordered by [facility] and reported by [employer]. ID Date Data Source [id number] 08/12/2020 02:54:00 PM EDT [facility] Name Value Range Interpretation Code Description Data Jing rce(s) Supporting Document(s) SARS-CoV-2 (COVID-19) RNA [Presence] in Respiratory specimen by BRENDA with probe detection Not Detected [facility] This lab was ordered by [facility] and reported by [employer] ID Date Data Source [id number] 07/29/2020 03:10:00 PM EDT [facility] Name Value Range Interpretation Code Description Data Jing rce(s) Supporting Document(s) SARS-CoV-2 (COVID-19) RNA [Presence] in Respiratory specimen by BRENDA with probe detection Not Detected [facility] This lab was ordered by [facility] and reported by [employer] ID Date Data Source [id number] 07/22/2020 08:40:00 AM EDT [facility] Name Value Range Interpretation Code Description Data Jing rce(s) Supporting Document(s) SARS coronavirus 2 RNA Not Detected [facility] This lab was ordered by [facility] and reported by [employer]. ID Date Data Source [id number] 07/15/2020 02:30:00 PM EDT [facility] Name Value Range Interpretation Code Description Data Jing rce(s) Supporting Document(s) SARS coronavirus 2 RNA Not Detected [facility] This lab was ordered by [facility] and reported by [facility]. ID Date Data Source [id number] 07/08/2020 02:30:00 PM EST [facility] Name Value Range Interpretation Code Description Data Jing rce(s) Supporting Document(s) SARS coronavirus 2 RNA Not Detected [facility] This lab was ordered by [facility] and reported by [facility]. ID Date Data Source [id number] 07/01/2020 03:00:00 PM EST [facility] Name Value Range Interpretation Code Description Data Jing rce(s) Supporting Document(s) SARS coronavirus 2 RNA Not Detected [facility] This lab was ordered by [facility] and reported by [facility]. ID Date Data Source [id number] 06/24/2020 12:30:00 PM EST [facility] Name Value Range Interpretation Code Description Data Jing rce(s) Supporting Document(s) SARS coronavirus 2 RNA Not Detected [facility] This lab was ordered by [facility] and reported by [facility]. ID Date Data Source [id number] 06/17/2020 01:53:00 PM EST [facility] Name Value Range Interpretation Code Description Data Jing rce(s) Supporting Document(s) SARS coronavirus 2 RNA Not Detected [facility] This lab was ordered by [facility] and reported by [facility]. ID Date Data Source [id number] 06/16/2020 12:51:00 PM EST [facility] Name Value Range Interpretation Code Description Data Jing rce(s) Supporting Document(s) SARS coronavirus 2 RNA Not Detected [facility] This lab was ordered by [facility] and reported by [facility]. ID Date Data Source [id number] 05/29/2020 02:00:00 PM EST [facility] Name Value Range Interpretation Code Description Data Jing rce(s) Supporting Document(s) SARS coronavirus 2 RNA Not Detected [facility] This lab was ordered by [facility] and reported by [facility]. ID Date Data Source [id number] 05/20/2020 09:30:00 AM EST [facility] Name Value Range Interpretation Code Description Data Jing rce(s) Supporting Document(s) SARS coronavirus 2 RNA Not Detected [facility] This lab was ordered by [facility] and reported by [facility]. ID Date Data Source [id number] 05/13/2020 03:00:00 PM EST [facility] Name Value Range Interpretation Code Description Data Jing rce(s) Supporting Document(s) SARS coronavirus 2 RNA Not Detected [facility] This lab was ordered by [facility] and reported by [facility]. ID Date Data Source [id number] 05/06/2020 01:00:00 PM EST [facility] Name Value Range Interpretation Code Description Data Jing rce(s) Supporting Document(s) SARS coronavirus 2 RNA Not Detected [facility] This lab was ordered by [facility] and reported by [facility]. ID Date Data Source [id number] 04/30/2020 09:50:00 AM EST [facility] Name Value Range Interpretation Code Description Data Jing rce(s) Supporting Document(s) SARS coronavirus 2 RNA [facility] This lab was ordered by [facility] and reported by [facility]. ID Date Data Source [id number] 04/29/2020 12:00:00 AM EST [facility] Name Value Range Interpretation Code Description Data Jing rce(s) Supporting Document(s) SARS coronavirus 2 Ag [facility] This lab was ordered by [facility] and reported by [facility] ID Date Data Source [id number] 04/22/2020 12:00:00 PM EST [facility] Name Value Range Interpretation Code Description Data Jing rce(s) Supporting Document(s) SARS coronavirus 2 RNA [facility] This lab was ordered by [facility] and reported by [facility]. ID Date Data Source [id number] 04/15/2020 12:27:00 PM EST [facility] Name Value Range Interpretation Code Description Data Jing rce(s) Supporting Document(s) SARS coronavirus 2 RNA [facility] This lab was ordered by [facility] and reported by [facility]. ID Date Data Source [id number] 04/08/2020 01:44:00 PM EST [facility] Name Value Range Interpretation Code Description Data Jing rce(s) Supporting Document(s) SARS coronavirus 2 RNA [facility] This lab was ordered by [facility] and reported by [facility]. ID Date Data Source [id number] 04/01/2020 12:00:00 PM EST [facility] Name Value Range Interpretation Code Description Data Jing rce(s) Supporting Document(s) SARS coronavirus 2 RNA [facility] This lab was ordered by [facility] and reported by [facility]. ID Date Data Source [id number] 03/25/2020 07:30:00 AM EST [facility] Name Value Range Interpretation Code Description Data Jing rce(s) Supporting Document(s) SARS coronavirus 2 RNA [facility] This lab was ordered by [facility] and reported by [facility]. ID Date Data Source [id number] 03/18/2020 07:30:00 AM EST [facility] Name Value Range Interpretation Code Description Data Jing rce(s) Supporting Document(s) SARS coronavirus 2 RNA [facility] This lab was ordered by [facility] and reported by [facility]. ID Date Data Source [id number] 03/11/2020 12:22:00 PM EST [facility] Name Value Range Interpretation Code Description Data Jing rce(s) Supporting Document(s) SARS coronavirus 2 RNA [facility] This lab was ordered by [facility] and reported by [facility]. ID Date Data Source [id number] 03/04/2020 12:49:00 PM EST [facility] Name Value Range Interpretation Code Description Data Jing rce(s) Supporting Document(s) SARS coronavirus 2 RNA [facility] This lab was ordered by [facility] and reported by [facility]. ID Date Data Source [id number] 02/26/2020 02:00:00 PM EDT [facility] Name Value Range Interpretation Code Description Data Jing rce(s) Supporting Document(s) SARS coronavirus 2 RNA [facility] This lab was ordered by [facility] and reported by [facility]. ID Date Data Source [id number] 02/19/2020 02:25:00 PM EDT [facility] Name Value Range Interpretation Code Description Data Jing rce(s) Supporting Document(s) SARS coronavirus 2 RNA [facility] This lab was ordered by [facility] and reported by [facility]. ID Date Data Source [id number] 02/12/2020 10:35:00 AM EDT [facility] Name Value Range Interpretation Code Description Data Jing rce(s) Supporting Document(s) SARS coronavirus 2 RNA [facility] This lab was ordered by [facility] and reported by [facility]. ID Date Data Source [id number] 02/05/2020 11:00:00 AM EDT [facility] Name Value Range Interpretation Code Description Data Jing rce(s) Supporting Document(s) SARS coronavirus 2 RNA [facility] This lab was ordered by [facility] and reported by [facility]. ID Date Data Source [id number] 01/29/2020 10:56:00 AM EDT [facility] Name Value Range Interpretation Code Description Data Jing rce(s) Supporting Document(s) SARS coronavirus 2 RNA [facility] This lab was ordered by [facility] and reported by [facility]. ID Date Data Source [id number] 01/22/2020 02:14:00 PM EDT [facility] Name Value Range Interpretation Code Description Data Jing rce(s) Supporting Document(s) SARS coronavirus 2 RNA [facility] This lab was ordered by [facility] and reported by [facility]. ID Date Data Source [id number] 01/15/2020 09:17:00 AM EDT [facility] Name Value Range Interpretation Code Description Data Jing rce(s) Supporting Document(s) SARS coronavirus 2 RNA [facility] This lab was ordered by [facility] and reported by [facility]. ID Date Data Source [id number] 01/08/2020 07:50:00 AM EDT [facility] Name Value Range Interpretation Code Description Data Jing rce(s) Supporting Document(s) SARS coronavirus 2 RNA [facility] This lab was ordered by [facility] and reported by [facility]. ID Date Data Source [id number] 01/01/2020 11:00:00 AM EDT [facility] Name Value Range Interpretation Code Description Data Jing rce(s) Supporting Document(s) SARS coronavirus 2 RNA [facility] This lab was ordered by [facility] and reported by [facility]. Procedure Social History Code Duration Value Status Description Data Source(s ) Smoking 01/23/2021 12:00:00 AM EDT Never Smoker completed Never S moker eCW1 ([facility]) Smoking 01/23/2021 12:00:00 AM EDT Never Smoker completed Never S moker eCW1 ([facility]) Smoking 01/23/2021 12:00:00 AM EDT Never Smoker completed Never S moker eCW1 ([facility]) Smoking 01/23/2021 12:00:00 AM EDT Never Smoker completed Never S moker eCW1 ([facility]) Smoking 12/15/2020 12:00:00 AM EDT Never Smoker completed Never S moker eCW1 ([facility]) Smoking 12/15/2020 12:00:00 AM EDT Never Smoker completed Never S moker eCW1 ([facility]) Smoking 12/15/2020 12:00:00 AM EDT Never Smoker completed Never S moker eCW1 ([facility]) Smoking 11/14/2020 12:00:00 AM EDT Never Smoker completed Never S moker eCW1 ([facility]) Smoking 10/16/2020 12:00:00 AM EDT Never Smoker completed Never S moker eCW1 ([facility]) Smoking 10/16/2020 12:00:00 AM EDT Never Smoker completed Never S moker eCW1 ([facility]) Smoking 09/18/2020 12:00:00 AM EDT Never Smoker completed Never S moker eCW1 ([facility]) Smoking 08/25/2020 12:00:00 AM EDT Never Smoker completed Never S moker eCW1 ([facility]) Smoking 08/25/2020 12:00:00 AM EDT Never Smoker completed Never S moker eCW1 ([facility]) Smoking 2020 12:00:00 AM EDT Never Smoker completed Never S moker eCW1 ([facility]) Smoking 2020 12:00:00 AM EDT Never Smoker completed Never S moker eCW1 ([facility]) Vital Signs ID Date Data Source UNK Name Value Range Interpretation Code Description Data Source(s) Body weight 147.8 [lb_av] 147.8 [lb_av] eCW1 ([facility]) Body height 63 [in_i] 63 [in_i] eCW1 ([facility]) Body mass index (BMI) [Ratio] 26.182 kg/m2 26.1 82 kg/m2 W1 ([facility]) Systolic blood pressure 122 mm[Hg] 122 mm[Hg] e CW1 ([facility]) Diastolic blood pressure 58 mm[Hg] 58 mm[Hg] eCW1 ([facility]) Body weight 143 [lb_av] 143 [lb_av] eCW1 ([facility]) Body weight 64.86 kg 64.86 kg W1 ([facility]) Body height 63 [in_i] 63 [in_i] eCW1 ([facility]) Body mass index (BMI) [Ratio] 25.331 kg/m2 25.3 31 kg/m2 eCW1 ([facility]) Systolic blood pressure 120 mm[Hg] 120 mm[Hg] e CW1 ([facility]) Diastolic blood pressure 68 mm[Hg] 68 mm[Hg] eCW1 ([facility]) Body weight 141 [lb_av] 141 [lb_av] eCW1 ([facility]) Body height 63 [in_i] 63 [in_i] eCW1 ([facility]) Body mass index (BMI) [Ratio] 24.977 kg/m2 24.9 77 kg/m2 W1 ([facility]) Systolic blood pressure 128 mm[Hg] 128 mm[Hg] e CW1 ([facility]) Diastolic blood pressure 62 mm[Hg] 62 mm[Hg] eCW1 ([facility]) Body weight 137.6 [lb_av] 137.6 [lb_av] eCW1 ([facility]) Body weight 62.41 kg 62.41 kg eCW1 ([facility]) Body height 63 [in_i] 63 [in_i] eCW1 ([facility]) Body mass index (BMI) [Ratio] 24.375 kg/m2 24.3 75 kg/m2 eCW1 ([facility]) Systolic blood pressure 120 mm[Hg] 120 mm[Hg] e CW1 ([facility]) Diastolic blood pressure 78 mm[Hg] 78 mm[Hg] eCW1 ([facility]) Body weight 131 [lb_av] 131 [lb_av] eCW1 ([facility]) Body weight 59.42 kg 59.42 kg eCW1 ([facility]) Body mass index (BMI) [Ratio] 23.206 kg/m2 23.2 06 kg/m2 eCW1 ([facility]) Body height 63 [in_i] 63 [in_i] eCW1 ([facility]) Systolic blood pressure 110 mm[Hg] 110 mm[Hg] e CW1 ([facility]) Diastolic blood pressure 68 mm[Hg] 68 mm[Hg] eCW1 ([facility]) Body weight 125.0 [lb_av] 125.0 [lb_av] eCW1 ([facility]) Body weight 56.7 kg 56.7 kg eCW1 ([facility]) Body height 63 [in_i] 63 [in_i] eCW1 ([facility]) Body mass index (BMI) [Ratio] 22.143 kg/m2 22.1 43 kg/m2 eCW1 ([facility]) Systolic blood pressure 110 mm[Hg] 110 mm[Hg] e CW1 ([facility]) Diastolic blood pressure 64 mm[Hg] 64 mm[Hg] eCW1 ([facility]) Body weight 120.0 [lb_av] 120.0 [lb_av] eCW1 ([facility]) Body weight 54.43 kg 54.43 kg eCW1 ([facility]) Body height 63 [in_i] 63 [in_i] eCW1 ([facility]) Body mass index (BMI) [Ratio] 21.257 kg/m2 21.2 57 kg/m2 eCW1 ([facility]) Systolic blood pressure 116 mm[Hg] 116 mm[Hg] e CW1 ([facility]) Diastolic blood pressure 70 mm[Hg] 70 mm[Hg] eCW1 ([facility]) Body weight 117.8 [lb_av] 117.8 [lb_av] eCW1 ([facility]) Body weight 53.43 kg 53.43 kg eCW1 ([facility]) Body height 63 [in_i] 63 [in_i] eCW1 ([facility]) Body mass index (BMI) [Ratio] 20.867 kg/m2 20.8 67 kg/m2 eCW1 ([facility]) Systolic blood pressure 124 mm[Hg] 124 mm[Hg] e CW1 ([facility]) Diastolic blood pressure 62 mm[Hg] 62 mm[Hg] eCW1 ([facility]) Body weight 117.0 [lb_av] 117.0 [lb_av] eCW1 ([facility]) Body weight 53.07 kg 53.07 kg eCW1 ([facility]) Body height 63 [in_i] 63 [in_i] eCW1 ([facility]) Body mass index (BMI) [Ratio] 20.726 kg/m2 20.7 26 kg/m2 eCW1 ([facility]) Systolic blood pressure 120 mm[Hg] 120 mm[Hg] e CW1 ([facility]) Diastolic blood pressure 76 mm[Hg] 76 mm[Hg] eCW1 ([facility]) Systolic blood pressure 118 mm[Hg] 118 mm[Hg] M [facility] ([facility]) Diastolic blood pressure 70 mm[Hg] 70 mm[Hg] [facility] ([facility]) Heart rate 98 /min 98 /min [facility] ([facility]) Body temperature 96.8 [degF] 96.8 [degF] [facility] ([facility]) Respiratory rate 16 /min 16 /min [facility] ( [facility]) Oxygen saturation in Arterial blood by Pulse oximetry 100 % 100 % [facility] ([facility]) Body weight 124.38 [lb_av] 124.38 [lb_av] [facility] ([facility]) Body weight 56.416 kg 56.416 kg [facility] ([facility]) Body height 63 [in_i] 63 [in_i] [facility] ([facility]) 5'3" Body height [Percentile] 31 % 31 % [facility] ([facility]) Body mass index (BMI) [Ratio] 22.0 kg/m2 22.0 k g/m2 [facility] ([facility]) Body mass index (BMI) [Percentile] 54 % 5 4 % [facility] ([facility]) Body surface area Derived from formula 1.58 m2 1.58 m2 [facility] ([facility]) Patient Treatment Plan of Care Planned Activity Planned Date Details Description Data Source (s) Levothyroxine Sodium 0.05 MG Oral Tablet 12/18/2020 12:00:00 AM EDT eCW1 ([facility]) ferrous sulfate 325 MG Oral Tablet 12/18/2020 12:00:00 AM EDT eCW1 ([facility]) Levothyroxine Sodium 0.05 MG Oral Tablet 12/18/2020 12:00:00 AM EDT eCW1 ([facility]) ferrous sulfate 325 MG Oral Tablet 12/18/2020 12:00:00 AM EDT eCW1 ([facility]) NITROFURANTOIN, MACROCRYSTALS 25 MG / Ni trofurantoin, Monohydrate 75 MG Oral Capsule [Macrobid] 10/26/2020 12:00:00 AM EDT eC W1 ([facility]) NITROFURANTOIN, MACROCRYSTALS 25 MG / Ni trofurantoin, Monohydrate 75 MG Oral Capsule [Macrobid] 08/01/2020 12:00:00 AM EDT eC W1 ([facility]) Ondansetron 4 MG Disintegrating Oral Tablet 2020 12:00:00 AM EDT eCW1 ([facility]) Ondansetron 4 MG Disintegrating Oral Tablet 2020 12:00:00 AM EDT eCW1 ([facility])
[2021-02-28] MEDS ORDERED: OXYTOCIN DRIP 30 UNITS in IV 1 EA IV PRN (16:25)
[2021-02-28] MEDS ORDERED: LIDOCAINE 1% MDV 20ML VIAL INFIL PRN (16:25)
--- NOTE | 2021-02-28 16:34 | HPEPDOC ---
Obstetrical History & Physical General Date of Admission Feb 28, 2021 at 16:18 History of Present Illness 20-year-old 1 presents at 39 weeks 0 days with complaints of contraction s 3 to 5 minutes since noon. Reports active movements denies any vaginal bleeding or leakage of fluid Chief Complaint: Contractions, term Information Provided By: Patient Age: 20 : 1 Care Care: Good Care Dating Final EDC: Mar 07, 2021 Final EDC by: LMP EGA at Admission: 39 Past Medical History Past Obstetrical History : Past Obstetrical History: [employer] History: No pertinent history Past Medical History Medical History Hypothyroidism Family History Significant Family History: No pertinent family hx Social History * Smoker: non-smoker Alcohol: Denies Drugs: denies Allergies Coded Allergies: adhesive (Verified Adverse Reaction, Mild, IRRITATION, 06/30/20) Medications Scheduled Calcium Carbonate (Tums) 300 Mg Tab.chew, 1 TAB PO BID No.137/Iron/Folic Acd ( Vitamin Tablet) 1 Each Tablet, 1 TAB PO DAILY Miscellaneous Medications Levothyroxine Sodium (Levothyroxine Sodium) 50 Mcg Tablet Physical Examination Physical Examination GENERAL: Alert and oriented times three. BREAST: . ABDOMEN: Gravid and non-tender to touch. EFW 3700 g FETUS: Is vertex (VTX) by sterile vaginal examination (SVE), fetus is vertex (VTX) by Ayo. HEART RATE: Regular rate and rhythm. LUNGS: Clear to auscultation (CTA). Laboratory Data [facility] Laboratory Tests 2 02/28/21 16:23: Serology Scanned Report Hepatitis B Testing Pertinent Laboratoy Data Blood Type: A+ RBC Antibody Screen: Negative HIV: Negative Hepatitis B: Negative Hepatitis C: Negative Rapid Plasma Reagin: Nonreactive Rubella: Immune Chlamydia/Gonorrhea: Negative Group B Streptococcus: Negative Glucose Tolerance Test: 117 Anatomy Ultrasound Placenta Location: Posterior Normal Anatomy: Yes Placenta Previa: No Vaginal Examination Dilation: 5 cm Effacement: 90% Station: -2 Cervical Position: Anterior Presentation: Cephalic presentation Assessment Variability: Moderate Accelerations: Positive Tocometer Contractions: Yes Frequency: regular Assessment/Plan Assessment 20-year-old G1 at 39 weeks 0 days in active labor Reassuring status Plan Admit and orient. Electronics Detail Draftsperson and consent. Diet: Clears. Group B Streptococcus (GBS) negative. Labs and intravenous (IV) per unit protocol. Counseled on Pitocin and induction of labor (IOL). Anticipate normal spontaneous delivery (). C-S as appropriate. KAMILLA SIFUENTES MD. Feb 28, 2021 16:34
[2021-02-28] MEDS ORDERED: OXYTOCIN 30 UNITS IN 0.9% NaCl 500ML IV BAG (J2590) As Ordered ONE (16:37)
[2021-02-28 17:27] LABS: HEMATOCRIT 32.1 % (36.0-47.0); HEMOGLOBIN 10.3 g/dl (12.0-15.5); MEAN CORPUSCULAR HGB CONC 32.1 g/dl (32.0-36.5); MEAN CORPUSCULAR VOLUME 84.3 fl (80.0-96.0); PLATELET COUNT, AUTOMATED 217 10^3/uL (150-450); RED BLOOD COUNT 3.81 10^6/uL (4.00-5.40); WHITE BLOOD COUNT 13.2 10^3/uL (4.0-10.0)
[2021-02-28] MEDS ORDERED: LR 1,000 ML IV SCH (21:10)
[2021-02-28] MEDS ORDERED: OXYTOCIN DRIP 30 UNITS in IV 1 EA IV SCH (21:10)
--- NOTE | 2021-02-28 21:12 | IPNPDOC ---
Obstetrical Progress Note Date of Service Feb 28, 2021 Subjective Patient coping with contractions well. Objective Vital Signs Date Time Temp Pulse Resp B/P (MAP) Pulse Ox O2 Delivery O2 Flow Rate FiO2 02/28/21 17:32 87 134/73 (93) Assessment Variability: Moderate Accelerations: Positive Heart Rate Tracing: Category I Tocometer Contractions: Yes Sterile Vaginal Examination Dilation: 5 cm Effacement (%): 90% Station: -1 Cervical Consistency: Soft Cervical Position: Anterior Postion/Presentation: Cephalic presentation (AROM cleared) Assessment and Plan Age: 20 : 1 EGA at Admission: 39 Status: Reassuring Group B Streptococcus: Negative Anticipate: Vaginal Delivery KAMILLA SIFUENTES MD. Feb 28, 2021 21:12
[2021-02-28] MEDS ORDERED: FENTANYL 2MCG/ML ROPIVACAINE 0.2% IN 0.9% NACL 100ML IVBAG As Ordered ONE (22:36)
[2021-02-28] MEDS ORDERED: ePHEDrine SULFATE 25 MG/5 ML(5MG/ML) SYRINGE IV PRN (22:50)
[2021-02-28] MEDS ORDERED: NALOXONE INJ 0.4MG/1ML VIAL (J2310 PER 1MG) IV PRN (22:50)
[2021-02-28] MEDS ORDERED: EPIDURAL/PCA KEYS XX PRN (22:50)
[2021-02-28] MEDS ORDERED: diphenhydrAMINE 50MG/ML VIAL (J1200) IV PRN (22:50)
[2021-02-28] MEDS ORDERED: LACTATED RINGER'S 1000 ML IV PRN (22:50)
[2021-02-28] MEDS ORDERED: ONDANSETRON 4MG/2ML VIAL IV PRN (22:50)
[2021-02-28] MEDS ORDERED: FENTANYL/ROPIVACAINE/NACL BAG 100 ML EPIDURAL SCH (22:50)
[2021-02-28] MEDS ORDERED: EPIDURAL COMMENT XX SCH (22:50)
[2021-02-28] MEDS ORDERED: REFRIGERATOR IV KEYS XX PRN (22:50)
[2021-03-01] VITALS (12 sets, daily range): BP systolic 122–141; BP diastolic 56–74
--- NOTE | 2021-03-01 04:51 | DNPDOC ---
[facility] Delivery Note Delivery Note DATE OF DELIVERY: 03/01/2021 TIME OF : 0428 GENDER: Male. APGARS: 9 and 9. WEIGHT: 3970 or 8 pounds 14 ounces LACERATIONS: None ANESTHESIA: Epidural ESTIMATED BLOOD LOSS: 200 ml COUNTS: 5 laparotomy sponges accounted for prior to after delivery. DELIVERY NOTE: On on 03/01/2021 at 0428 Mrs. Baez is a 20-year-old 1 now para 1 had a spontaneous vaginal delivery of a liveborn male Apgars 9 and 9 weight was 8 pounds 14 ounces at 3970 g. Head was delivered occiput anterior (OA). There was a nuchal cord manually reduced, followed by delivery of the shoulders and corpus. was handed to mom with a good cry. Cord was clamped times two and was cut by support person under my direction. Placenta was then drained and delivered grossly intact. A premixed bag of 500 mL of normal saline with 30 units of Pitocin was then bolused along with uterine massage until the uterus was firm. On inspection , cervix, vagina, perineum was grossly intact and hemostatic. Mom and baby in recovery on stable condition. Couples decided to name their son Sammy KAMILLA SIFUENTES MD. Mar 01, 2021 04:51
[2021-03-01] MEDS ORDERED: MEASLES,MUMPS,RUBELLA VACCINE INJ (MMR-II) (90707) SC SCH (04:55)
[2021-03-01] MEDS ORDERED: METHYLERGONOVINE MALEATE 0.2 MG TAB PO PRN (04:55)
[2021-03-01] MEDS ORDERED: ANUSOL HC CREAM 30GM TOP PRN (04:55)
[2021-03-01] MEDS ORDERED: DOCUSATE SODIUM 100MG CAPSULE PO PRN (04:55)
[2021-03-01] MEDS ORDERED: ACETAMINOPHEN TAB 650MG DOSE (2X325MG) PO PRN (04:55)
[2021-03-01] MEDS ORDERED: OXYTOCIN DRIP 30 UNITS in IV 1 EA IV SCH (04:55)
[2021-03-01] MEDS ORDERED: DIBUCAINE 1% OINTMENT 30GM TOP PRN (04:55)
[2021-03-01] MEDS ORDERED: RHOGAM 300 MCG (1500 IU) INJ (J2790) IM SCH (04:55)
[2021-03-01] MEDS ORDERED: MOM 30ML SUSPENSION UDC PO PRN (04:55)
[2021-03-01] MEDS ORDERED: ACETAMINOPHEN 500 MG TAB PO PRN (04:55)
[2021-03-01] MEDS: IBUPROFEN 800 MG TAB PO PRN ×2 (07:00→18:29)
[2021-03-01] MEDS: PRENATAL VITAMINS CHEWABLE TABLET PO SCH (08:13)
[2021-03-01] MEDS: LEVOTHYROXINE 50MCG TABLET (0.05MG) PO SCH (13:01)
[2021-03-02] MEDS: LEVOTHYROXINE 50MCG TABLET (0.05MG) PO SCH (05:44)
[2021-03-02 06:00] VITALS: BP 115/62
[2021-03-02] MEDS: PRENATAL VITAMINS CHEWABLE TABLET PO SCH (08:48)
[2021-03-02] MEDS: IBUPROFEN 600MG TAB PO PRN ×2 (08:51→19:39)
--- NOTE | 2021-03-02 12:11 | IPNPDOC ---
Progress Note Date of Service: Mar 02, 2021 Day#: 1 Progress Note SUBJECT: Haris is a 20-year-old 1 now Para 1001 status post uncompl icated spontaneous vaginal delivery at 39-1/7 weeks' on 03/01/21 of a male weighting 8 pounds 14 ounces (3970 grams) over an intact perineum. Doing well day # 1. She has been ambulating, voiding spontaneously without issue and tolerating regular diet. Breast feeding without issue. Reports lochia is like a normal period. Reports some cramping with . Denies any pain. OBJECTIVE: VITAL SIGNS: Within normal limits, afebrile. Alert and oriented times three. Respirations are nonlabored on room air, no use of accessory muscles. Abdomen: Fundus firm at U-2. Soft, NTTP. Minimal lochia. ASSESSMENT: day 1. PLAN: 1. Discharge to home tomorrow. 2. Encourage breast feeding and ambulation. 3. Continue with supportive nursing care. VS, I&O, 24H, Fishbone Vital Signs/I&O Vital Signs Date Time Temp Pulse Resp B/P (MAP) Pulse Ox O2 Delivery O2 Flow Rate FiO2 03/02/21 06:00 97.0 83 18 115/62 (79) 03/01/21 17:28 97 Room Air I&O- Last 24 Hours up to 6 AM 03/02/21 05:59 Intake Total 840 ml Output Total 800 ml Balance 40 ml CESARIO NGUYEN CNM Mar 02, 2021 12:11
[2021-03-02 18:00] VITALS: BP 126/64
[2021-03-03] MEDS: LEVOTHYROXINE 50MCG TABLET (0.05MG) PO SCH (05:26)
[2021-03-03 06:00] VITALS: BP 142/84
[2021-03-03] MEDS ORDERED: ACET-683 PO (09:22)
[2021-03-03] MEDS ORDERED: IBUP80TA PO (09:22)
[2021-03-03] MEDS: PRENATAL VITAMINS CHEWABLE TABLET PO SCH (11:31)
== END 2021-03-03 12:02 | disposition home or self-care (01) | DRG 807 ==
LOC: M LDO 14:45 → M LDI 16:18 → M OBS 03-01 05:55
PROVIDERS: ADMIT Obstetrics & Gynecology; ATTEND Obstetrics & Gynecology
PROC: 10E0XZZ Delivery of Products of Conception, External Approach (ICD-10-PCS; principal; 2021-03-01)
DX: O69.81X0 Labor and delivery complicated by cord around neck, without compression, not applicable or unspecified (principal); Z37.0 Single live birth; Z3A.39 39 weeks gestation of pregnancy

== ENCOUNTER → 2023-08-19 | Outpatient (REF) ==
[~2023-08-19] MED LIST: ACET-683 PO; IBUP80TA PO; LEVO50TA5; PRENTAB9 PO; TUMS750C5 PO
== END ==
LOC: M CAHLAB 17:10
DX: Z36.8A Encounter for antenatal screening for other genetic defects (principal)